=== PATIENT | female | born 1965 | race Caucasian/White ===

== ENCOUNTER 2018-11-28 08:03 | Emergency (ER) | payer OTHER ==
[~2018-11-28] VITALS: Ht 157.5 cm; Wt 98.4 kg
[2018-11-28 08:09] VITALS: BP 172/96
--- NOTE | 2018-11-28 08:09 | NUR ---
PT AMBULATED TO BED 4
--- NOTE | 2018-11-28 08:11 | NUR ---
FLU SWAB COLLECTED
--- NOTE | 2018-11-28 08:20 | NUR ---
PATIENT PRESENTS TO ED WITH C/O COUGH, BODY ACHES, NAUSEA X1 MONTH. DENIES PAIN, SOB, V/D/FEVER. Mild crackles in bilat bases noted on inspiration. SKIN IS PINK/WARM/DRY; AAOX4 WITH EVEN AND STEADY GAIT; HR EVEN AND REGULAR; PATIENT POSITIONED FOR COMFORT; HOB ELEVATED; BEDRAILS UP X2; BED DOWN.
--- NOTE | 2018-11-28 08:28 | NUR ---
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
[2018-11-28] MEDS ORDERED: ALBUTEROL SULFATE/IPRATROPIU 3 ML SOL IH ONE (08:29)
--- NOTE | 2018-11-28 08:30 | NUR ---
RT at bedside
[2018-11-28] MEDS ORDERED: CLINDAMYCIN 600 MG/4 ML VIAL ONE (08:40)
--- NOTE | 2018-11-28 08:40 | NUR ---
MEDS GIVEN PER MD ORDERS, PAPER DOCUMENTATION
[2018-11-28] MEDS ORDERED: DEXAMETHASONE 4 MG/ML VIAL ONE (08:41)
--- NOTE | 2018-11-28 09:15 | NUR ---
PT REASSESSED, CRACKLES NOTED IN BILAT BASES, NO SOB, EVEN AND UNLABORED BREATHING, SAT AT 97%
[2018-11-28 09:34] VITALS: BP 184/102
--- NOTE | 2018-11-28 09:36 | NUR ---
Patient discharged with v/s stable. Written and verbal after care instructions given and explained. Patient alert, oriented and verbalized understanding of instructions. Ambulatory with steady gait. All questions addressed prior to discharge. ID band removed. Patient advised to follow up with PMD. Rx of LEVAQUIN, PROMETHAZINE, & NAPROSYN given. Patient educated on indication of medication including possible reaction and side effects. Opportunity to ask questions provided and answered.
== END 2018-11-28 09:36 | disposition home or self-care (01) ==
LOC: MED 08:03
DX: J40 Bronchitis, not specified as acute or chronic (principal); I10 Essential (primary) hypertension; E11.9 Type 2 diabetes mellitus without complications; E05.90 Thyrotoxicosis, unspecified without thyrotoxic crisis or storm; Z88.5 Allergy status to narcotic agent
CPT/HCPCS: 87804; 94640; 94760; 99283; J1100; J3490; J7620

== ENCOUNTER 2018-12-18 13:55 | Emergency (ER) | payer OTHER ==
[~2018-12-18] VITALS: Ht 157.5 cm; Wt 94.9 kg
[2018-12-18 13:58] VITALS: BP 129/74
--- NOTE | 2018-12-18 14:16 | NUR ---
PATIENT PRESENTS TO ED WITH C/O OCCIPITAL PAIN RADIATING TO UPPER BACK X 4 DAYS---DENIES RECENT INJURY/TRAUMA AMBULATORY WITH STEADY GAIT---DENIES INCONTINENCE .; SKIN IS PINK/WARM/DRY; AAOX4 WITH EVEN AND STEADY GAIT; LUNGS CLEAR BL; HR EVEN AND REGULAR; PT DENIES ANY FEVER, CP, SOB, OR COUGH AT THIS TIME; PATIENT STATES PAIN OF 5/10 AT THIS TIME; VSS; PATIENT POSITIONED FOR COMFORT; HOB ELEVATED; BEDRAILS UP X2; BED DOWN. ER MD MADE AWARE OF PT STATUS.
[2018-12-18] MEDS ORDERED: ONDANSETRON 4 MG ODT PO ONE (14:20)
[2018-12-18 14:49] VITALS: BP 130/75
--- NOTE | 2018-12-18 14:49 | NUR ---
Patient discharged with v/s stable. Written and verbal after care instructions given and explained. Patient alert, oriented and verbalized understanding of instructions. Ambulatory with steady gait. All questions addressed prior to discharge. ID band removed. Patient advised to follow up with PMD. Rx of naproxen and zofran given. Patient educated on indication of medication including possible reaction and side effects. Opportunity to ask questions provided and answered.
== END 2018-12-18 14:49 | disposition home or self-care (01) ==
LOC: MED 13:55
DX: G44.209 Tension-type headache, unspecified, not intractable (principal); R42 Dizziness and giddiness; E11.9 Type 2 diabetes mellitus without complications; I10 Essential (primary) hypertension; E05.90 Thyrotoxicosis, unspecified without thyrotoxic crisis or storm; Z88.5 Allergy status to narcotic agent
CPT/HCPCS: 82948; 99283; Q0162

== ENCOUNTER 2019-08-25 14:32 | Emergency (ER) | payer OTHER ==
[~2019-08-25] VITALS: Ht 157.5 cm; Wt 99.8 kg
[2019-08-25 14:35] VITALS: BP 163/100
--- NOTE | 2019-08-25 14:38 | NUR ---
TO LOBBY A/W BED AMBULATORY
--- NOTE | 2019-08-25 14:54 | NUR ---
PT TO BED 2 WITH STEADY GAIT
--- NOTE | 2019-08-25 14:55 | NUR ---
54/F BIB FAMILY C/O NAUSEA,VOMITING, ABD PAIN, BACK PAIN, STARTED AN HOUR AGO. PATIENT STATES PAIN OF 5/10 AT THIS TIME. PATIENT POSITIONED FOR COMFORT; HOB ELEVATED; BEDRAILS UP X1; BED DOWN. ER MD MADE AWARE OF PT STATUS.
[2019-08-25] MEDS ORDERED: ONDANSETRON 4 MG/2 ML VIAL IVP ONE (15:05)
[2019-08-25] MEDS ORDERED: KETOROLAC 30 MG/ML VIAL IVP ONE (15:05)
[2019-08-25] MEDS ORDERED: NACL 0.9% 500 ML IV ONE (15:05)
[2019-08-25 15:28] LABS: BASOPHILS # (AUTO) 0.1 K/uL (0.00-0.22); BASOPHILS % (AUTO) 0.7 % (0.0-2.0); EOSINOPHILS # (AUTO) 0.1 K/uL (0-0.4); EOSINOPHILS % (AUTO) 1.1 % (0.0-4.0); HEMATOCRIT 44.8 % (36-48); HEMOGLOBIN 14.9 g/dL (12.0-16.0); LYMPHOCYTES # (AUTO) 3.1 K/uL (2.5-16.5); LYMPHOCYTES % (AUTO) 40.1 % (20.5-51.1); MEAN CORPUSCULAR HEMOGLOBIN 28 pg (27-31); MEAN CORPUSCULAR HGB CONC 33 g/dL (33-37); MEAN CORPUSCULAR VOLUME 84.5 fL (80-94); MONOCYTES # (AUTO) 0.5 K/uL (0.8-1.0); MONOCYTES % (AUTO) 6.3 % (1.7-9.3); NEUTROPHILS % (AUTO) 51.8 % (42.2-75.2); PLATELET COUNT (AUTO) 299 K/uL (140-450); RED CELL DISTRIBUTION WIDTH 13.4 % (11.6-13.7); WHITE BLOOD COUNT (AUTO) 7.7 K/uL (4.8-10.8)
[2019-08-25 15:58] LABS: ANION GAP 13.3 (8-16); CARBON DIOXIDE 28.6 mmol/L (21-32); CREATININE 0.8 mg/dL (0.6-1.3); POTASSIUM 3.9 mmol/L (3.5-5.1); TOTAL BILIRUBIN 0.6 mg/dL (0.0-1.0)
[2019-08-25 16:15] LABS: ALBUMIN 3.7 g/dL (3.4-5.0)
[2019-08-25 17:30] VITALS: BP 132/90
--- NOTE | 2019-08-25 17:30 | NUR ---
Patient discharged with v/s stable BY DR SIDDIQI. Written and verbal after care instructions given and explained. Patient verbalized understanding. Ambulatory with steady gait. All questions addressed prior to discharge. Advised to follow up with PMD.
== END 2019-08-25 17:30 | disposition home or self-care (01) ==
LOC: MED 14:32
DX: B34.9 Viral infection, unspecified (principal); E11.9 Type 2 diabetes mellitus without complications; I10 Essential (primary) hypertension; E05.90 Thyrotoxicosis, unspecified without thyrotoxic crisis or storm; Z98.890 Other specified postprocedural states; Z88.5 Allergy status to narcotic agent
CPT/HCPCS: 36415; 80053; 81002; 81025; 83690; 85025; 96374; 96375; 99283; J1885; J2405